=== PATIENT | female | born 1985 ===

== ENCOUNTER 2018-01-28 10:12 | Emergency (ER) | payer OTHER ==
[2018-01-28 10:33] VITALS: BP 112/60
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
== END 2018-01-28 11:30 | disposition home or self-care (01) ==
LOC: UCEAST 10:12
DX: J32.9 Chronic sinusitis, unspecified (principal); F32.9 Major depressive disorder, single episode, unspecified; F17.210 Nicotine dependence, cigarettes, uncomplicated
CPT/HCPCS: 36415; 86703; 99202; G0463

== ENCOUNTER 2019-03-03 10:10 | Emergency (ER) | payer OTHER ==
--- OUTSIDE RECORDS SUMMARY | 2019-03-03 10:15 | XMS REPORT | Continuity of Care Document ---
:1985 External Reference #:[id number] Author Name Jacqueline Taylor NP Address [address] [place] [address] Care Team Providers Name Role Phone Faustino Rinaldi MD - Family Care Team Information [employer] Medicine Problems Description No Information Available Social History Type Date Description Comments Sex Unknown ETOH Use Denies alcohol use Tobacco Use Start: Unknown Social Smoker Smoking Status Reviewed: 06/28/18 Social Smoker Allergies, Adverse Reactions, Alerts Active Allergies Reaction Severity Comments Date Quetiapine Neurological/Panic Attack 11/27/2017 Inactive Allergies NKDA 10/02/2017 Medications Active Medications SIG Qnty Indications Ordering Provider Date Meclizine HCL take 1-2 by mouth 60tabs H81.11 Jacqueline Diehl 02/10/2019 12.5mg 3 times daily as JOSEPH Taylor Tablets needed for vertigo Ondansetron HCL take one by mouth 30tabs H81.11 Jacqueline Diehl 02/10/2019 4mg every 6 hours as JOSEPH Taylor Tablets needed for vomiting Sertraline HCL Take 1 Tablet By 30tabs F41.1 Faustino Frank 12/17/2017 100mg Mouth Every Day MD [place] Tablets Immunizations CPT Code Status Date Vaccine Lot # [id number] Given 06/28/2018 Pneumococcal Immunization [id number] Given 06/28/2018 Tdap Tetanus, W Pertussis [id number] Vital Signs Date Vital Result Comment 02/10/2019 6:45pm BP Systolic 100 mmHg BP Diastolic 60 mmHg Heart Rate 68 /min Body Temperature 98.0 F Respiratory Rate 16 /min Height 62.5 inches 5'2.50" Weight 137.00 lb BMI (Body Mass Index) 24.7 kg/m2 06/28/2018 9:14am BP Systolic 114 mmHg BP Diastolic 78 mmHg Heart Rate 82 /min Body Temperature 97.3 F Height 62.5 inches 5'2.50" Weight 135.00 lb BMI (Body Mass Index) 24.3 kg/m2 Results Description No Information Available Procedures Description No Information Available Medical Devices Description No Information Available Encounters Description No Information Available Assessments Date Code Description Provider 02/10/2019 H81.11 Benign paroxysmal vertigo, right ear Jacqueline Taylor NP Plan of Treatment Future Appointment(s):06/29/2019 3:00 pm - Faustino Rinaldi MD at [id number]/10/2019 - Jacqueline Taylor, NPH81.11 Benign paroxysmal vertigo, right earNew Medication:Meclizine HCL 12.5 mg - take 1-2 by mouth 3 times daily as needed for vertigoOndansetron HCL 4 mg - take one by mouth every 6 hours as needed for vomitingComments:I expect symptoms to improve with time no matter what. Try the Blanca maneuver by watching youtube. If symptoms persist or worsen , let us know and we can consider imaging or follow-up with a physical therapist.AllComments:1. Patient has been queried about patient's goals/ preferences and functional/lifestyle goals at relevant visits. If relevant, describe: Has been discussed, noted above2. Treatment goals as explainedto the patient: see above3. Are there barriers to meeting treatment goals? Yes If Yes, please describe: Barriers include possible insurance limits, disease process, and difficulty with lifestyle changes4. Self-Management goals as described to the patient: Yes, see above As always, we strongly encourage a healthy diet and making physical activity a part of your every day life. If you have questions about how or where to start, please contact the office. Functional Status Description No Information Available Mental Status Description No Information Available Referrals Description No Information Available
[2019-03-03 10:18] VITALS: BP 108/69
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
[2019-03-03 17:54] LABS: HIV 4th Generation Nonreactive (Nonreactive)
== END 2019-03-03 11:31 | disposition home or self-care (01) ==
LOC: UCEAST 10:10
DX: J06.9 Acute upper respiratory infection, unspecified (principal); F17.210 Nicotine dependence, cigarettes, uncomplicated
CPT/HCPCS: 36415; 87389; 99211; G0463

== ENCOUNTER 2019-03-10 17:11 | Emergency (ER) | payer OTHER ==
[2019-03-10 17:24] VITALS: BP 113/69
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
--- NOTE | 2019-03-12 07:20 | UC ---
- Progress Note Progress Note: Progress Note: Lab: positive kahlil; negative gardnerella, trich. Patient was given fluconazole. No change in treatment. Colten Alexander MD Course/Dx - Diagnoses Provider Diagnoses: Vaginitis Discharge ED - Sign-Out/Discharge Documenting (check all that apply): Post-Discharge Follow Up All imaging exams completed and their final reports reviewed: No Studies - Discharge Plan Condition: Good Disposition: HOME Prescriptions: Fluconazole 150 MG TAB* [Diflucan 150 MG TAB*] 150 mg PO ONCE #1 tablet Patient Education Materials: Vaginitis (ED) Referrals: No Primary Care Phys,NOPCP [Primary Care Provider] - Additional Instructions: Use fluconazole tonight, anticipating that the symptoms will take 2 to 3 days to resolve. You can take a repeat dose in 7 days if symptoms persist. A swab to confirm yeast has been sent and will also screen for vaginosis. You will be called if a change of treatment is needed. - Billing Disposition and Condition Condition: GOOD Disposition: Home
== END 2019-03-10 18:00 | disposition home or self-care (01) ==
LOC: UCEAST 17:11
DX: B37.3 Candidiasis of vulva and vagina (principal); F17.210 Nicotine dependence, cigarettes, uncomplicated; R30.0 Dysuria
CPT/HCPCS: 81003; 87480; 87510; 87660; 99212; G0463

== ENCOUNTER 2019-05-16 13:00 | Emergency (ER) | payer OTHER ==
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
[2019-05-16 13:40] VITALS: BP 107/66
== END 2019-05-16 13:50 | disposition home or self-care (01) ==
LOC: UCEAST 13:00
DX: H10.9 Unspecified conjunctivitis (principal); F17.210 Nicotine dependence, cigarettes, uncomplicated
CPT/HCPCS: 99212; G0463

== ENCOUNTER 2019-05-24 11:17 | Emergency (ER) | payer OTHER ==
[2019-05-24 11:42] VITALS: BP 105/70
[2019-05-24 12:40] LABS: Influenza B Molecular POSITIVE (Negative)
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
== END 2019-05-24 12:45 | disposition home or self-care (01) ==
LOC: UCEAST 11:17
DX: J10.1 Influenza due to other identified influenza virus with other respiratory manifestations (principal); F17.210 Nicotine dependence, cigarettes, uncomplicated
CPT/HCPCS: 87651; 99212; G0463